=== PATIENT | male | born 1965 | race Hispanic/Latino ===

== ENCOUNTER 2021-08-03 07:27 | Emergency (ER) | payer BC ==
--- OUTSIDE RECORDS SUMMARY | 2021-08-03 07:30 | XMS REPORT | Continuity of Care Document ---
:1965 Author Organization [facility] t Address [address] Haq [address] [place] [id number] Care Team Providers Name Role Phone Cecil Flores MD Primary Care Physician Sarah MARTINEZ, Loc Pak Attending Clinician Krystian Parrish MD Attending Clinician Stefano INMAN Attending Clinician Unavailable Payers Payer Name Policy Type Policy Number Effective Date Expiration Date S ource Problems Condition Condition Condition Status Onset Resolution Last Treating Co mments Source Name Details Category Date Date Treatment Clinician Date Syringomye Syringomye Disease Active M ethodi bárbara bárbara 03-02 00:00: Hospita 00 l Chiari I Chiari I Disease Active Metho di malformati malformati 03-02 on on 00:00: Hospita 00 l Cervical Cervical Disease Active Metho di spondylosi spondylosi 03-02 s with s with 00:00: Hospita myelopathy myelopathy 00 l Chronic Chronic Disease Active [facility] right-side right-side 03-02 d d 00:00: Hospita headaches headaches 00 l Allergies, Adverse Reactions, Alerts Allergy Allergy Status Severity Reaction(s) Onset Inactive Treating Comm ents Source Name Type Date Date Clinician Morphine Propensi Active Other (See unknown M ethodi ty to Comments) [address] st adverse 00:00: Hospita reaction 00 l s to drug Social History Social Habit Start Date Stop Date Quantity Comments Source History of tobacco Cigarette Smoker [facility]ism use [facility] Cigarettes smoked 2021-05-02 2021-05-[address] current (pack per 00:00:00 00:00:00 Hospita l day) - Reported Cigarette 2021-05-02 2021-05-02 [facility] pack-years 00:00:00 00:00:00 Hospital Tobacco use and 2021-05-02 2021-05-02 Never used [facility] exposure 00:00:00 00:00:00 Hospital Alcohol intake 2021-05-02 2021-05-02 Current drinker Metho dist 00:00:00 00:00:00 of alcohol Hospital (finding) Alcohol Comment 2021-02-28 2021-02-28 social [facility] 00:00:00 00:00:00 Hospital Sex Ass[birth year] At [birth year] [facility] 00:00:00 00:00:00 Hospital Smoking Status Start Date Stop Date Source Former smoker 2021-05-02 00:00:00 2021-05-02 00:00:00 [facility] Medications Ordered Filled Start Stop Current Ordering Indication Dosage Frequency Signature Comments Components Source Medication Medication Date Date Medication? Clinician (SIG) Name Name SUMAtriptan Yes 50mg Take 50 mg Methodi (IMITREX) 05-[address] 50 MG 18:01: once as Hospita tablet 32 needed for l migraine. May repeat in 2 hours if unresolved . Do not exceed 200 mg in 24 hours. naproxen Yes 500mg Q.5D Take 500 Meth rey (NAPROSYN) 05-[address] 500 MG 18:01: mouth 2 Hospita tablet 32 (two) l times a day with meals. ubrogepant Yes Take by Meth rey (Ubrelvy) [address] 100 mg 18:01: Hospita tablet 32 l SUMAtriptan 2021- No 1{tbl} Q2H Take 1 M ethodi -naproxen 05-[address] (Treximet) 00:00: 04:59 mouth Hospi ta 85-500 mg 00 :00 every 2 l per tablet (two) hours as needed for migraine. montelukast Yes 5mg QD Chew 5 mg M ethodi (SINGULAIR) 3-[address] 5 MG 00:00: Hospita chewable 00 l tablet Vital Signs Vital Name Observation Time Observation Value Comments Source Systolic blood 2021-05-02 18:00:00 144 mm[Hg] [facility] pressure Diastolic blood 2021-05-02 18:00:00 82 mm[Hg] [facility] pressure Heart rate 2021-05-02 18:00:00 89 /min [facility] Body height 2021-05-02 18:00:00 185.4 cm [facility] Body weight 2021-05-02 18:00:00 104.781 kg [facility] BMI 2021-05-02 18:00:00 30.48 kg/m2 [facility] Respiratory rate 2021-03-30 12:10:00 18 /min [facility] Oxygen saturation in 2021-03-30 12:10:00 99 /min [facility] Arterial blood by Pulse oximetry Procedures Procedure Date / Time Performed Performing Clinician Sour e MRI THORACIC SPINE WO 2021-03-30 13:35:00 Hadley Parrish [facility] CONTRAST MRI CERVICAL SPINE WO 2021-03-30 13:15:00 Hadley Parrish [facility] CONTRAST MRI BRAIN WO CONTRAST 2021-03-30 12:43:00 Hadley Parrish [facility] XR CERVICAL SPINE 2021-03-02 15:02:10 Hadley Parrish [facility] COMPLETE W FLEX EXT XR SPINE SCOLIOSIS 2-3 2021-03-02 15:01:43 Hadley Parrish [facility] VIEWS CT HEAD EXTERNAL STUDY 2021-02-15 15:40:00 Hadley Parrish [facility] Plan of Care Planned Activity Planned Date Details Comments Source Future Scheduled Test COVID-19 VACCINE (1) [facility] [code = COVID-19 VACCINE (1)] Future Scheduled Test Hepatitis C screening [facility] (procedure) [code = 990102063] Future Scheduled Test COLONOSCOPY SCREENING [facility] [code = COLONOSCOPY SCREENING] Future Scheduled Test SHINGLES VACCINES (#1) [facility] [code = SHINGLES VACCINES (#1)] Future Scheduled Test INFLUENZA VACCINE [code [facility] = INFLUENZA VACCINE] Encounters Start End Encounter Admission Attending Care Care Encounter Source Date/Time Date/Time Type Type Clinicians Facility Department ID 2021-05-02 2021-05-02 Office Sarah, 1.2.840.1 [id number] [facility] 12:42:53 13:45:15 Visit Loc Gee50.1.[address] 3.430.2.7 Hospit a .3.278369 l .8 2021-05-02 2021-05-02 [id number] [address] [place] [address] 00:00:00 00:00:[address] 2021-05-02 2021-05-02 Travel 1.2.840.1 1.2.825.760 [id number] [facility] 00:00:00 00:00:[address] 3.430.2.7 0.2.7.3.698 Ho spita .3.066754 084.8 l .8 2021-03-30 2021-03-30 [facility], .2.840.1 [id number] 2099 [id number] Methodi 06:49:11 23:59:00 Encounter Hadley Boland [address]7962.1.[address] 3.430.2.7 Hospit a .3.894200 l .8 2021-03-30 2021-03-30 [facility], 1.2.840.1 [id number] [facility] 08:51:29 09:51:13 Visit Hadley Boland 58330.1.[address] 3.430.2.7 Hospit a .3.629832 l .8 2021-03-30 2021-03-30 [facility], .2.840.1 [id number] 2099 [id number] Methodi 06:48:50 06:48:50 Encounter Hadley XeniaVeena [address]4832.1.[address] 3.430.2.7 Hospit a .3.530014 l .8 2021-03-30 2021-03-30 [facility], .2.840.1 [id number] 2099 [id number] Method[facility] 06:48:35 06:48:35 Encounter Hadley MichaelsVeena 51015.1.[address] 3.430.2.7 Hospit a .3.999955 l .8 2021-03-30 2021-03-30 Outpatient , [facility] [id number] [address] [place] 00:00:00 00:00:00 HADLEY [address] 2021-03-30 2021-03-30 Outpatient [facility] [id number] [place] 00:00:00 00:00:00 HADLEY [address] 2021-03-30 2021-03-30 Outpatient SALOL, [facility] [id number] [place] 00:00:00 00:00:00 HADLEY [address] 2021-03-30 2021-03-30 Outpatient [facility] [id number] [place] 00:00:00 00:00:00 HADLEY [address] 2021-03-30 2021-03-30 Travel 1.2.840.1 1.2.591.367 [id number] [facility] 00:00:00 00:00:[address] 3.430.2.7 0.2.7.3.698 Ho spita .3.168963 084.8 l .8 2021-03-23 2021-03-23 Travel 1.2.840.1 1.2.726.800 [id number] [id number] [facility] 00:00:00 00:00:[address] 3.430.2.7 0.2.7.3.698 Ho spita .3.658119 084.8 l .8 2021-03-20 2021-03-20 Travel 1.2.840.1 1.2.411.303 1118 [id number] [facility] 00:00:00 00:00:[address] 3.430.2.7 0.2.7.3.698 Ho spita .3.875285 084.8 l .8 2021-03-20 2021-03-20 Orders , 1.2.840.1 [id number] [facility] 00:00:00 00:00:00 Only Hadley Krystian [address]24.1.[address] 3.430.2.7 Hospit a .3.790226 l .8 2021-03-02 2021-03-02 [facility], 1.2.840.1 [id number] Method[facility] 11:30:54 23:59:00 Encounter Hadley Krystian [address]659.1.[address] 3.430.2.7 Hospit a .3.689817 l .8 2021-03-02 2021-03-02 [facility], 1.2.840.1 [id number] [facility] 10:20:18 11:38:20 Visit Hadley Krystian 22423.1.[address] 3.430.2.7 Hospit a .3.730349 l .8 2021-03-02 2021-03-02 [facility], 1.2.840.1 [id number] 2099 [id number] Method[facility] 09:18:34 11:29:00 Encounter Hadley Krystian 91899.1.[address] 3.430.2.7 Hospit a .3.398707 l .8 2021-03-02 2021-03-02 [facility], 1.2.840.1 [id number] 2099 [id number] Method[facility] 09:15:00 09:17:00 Encounter Hadley Krystian 30895.1.[address] 3.430.2.7 Hospit a .3.780668 l .8 2021-03-02 2021-03-02 [facility] [id number] [place] 00:00:00 00:00:00 HADLEY [address] 2021-03-02 2021-03-02 Outpatient [facility] [id number] [place] 00:00:00 00:00:00 HADLEY [address] 2021-03-02 2021-03-02 Outpatient [facility] [id number] [place] 00:00:00 00:00:00 HADLEY [address] 2021-03-02 2021-03-02 Outpatient [facility] [id number] [place] 00:00:00 00:00:00 HADLEY [address] 2021-03-02 2021-03-02 Travel 1.2.840.1 1.2.678.263 [id number] [id number] [facility] 00:00:00 00:00:[address] 3.430.2.7 0.2.7.3.698 Ho spita .3.735144 084.8 l .8 2021-02-28 2021-02-28 Abstract Bella Agarwal 1.2.840.1 [id number] [facility] 00:00:00 00:00:[address] 3.430.2.7 Hospit a .3.972804 l .8 2021-02-20 2021-02-20 Orders , 1.2.840.1 [id number] [facility] 00:00:00 00:00:00 Only Hadley G. 15169.1.[address] 3.430.2.7 Hospit a .3.546502 l .8 2021-02-20 2021-02-20 Travel 1.2.840.1 1.2.853.704 [id number] [id number] [facility] 00:00:00 00:00:[address] 3.430.2.7 0.2.7.3.698 Ho spita .3.147244 084.8 l .8 Results Test Description Test Time Test Comments Results Result [facility] e Comments MRI Thoracic 2021-03-03 EXAMINATION: MRI Method ist Spine Wo 9 THORACIC SPINE WO Hospita l Contrast 14:02:47 CONTRAST CLINICAL HISTORY: G95.0 Syringomyelia and syringobulbia, G93.5 Compression of brain, Syringomyelia COMPARISON: None TECHNIQUE: Multiplanar multisequence noncontrast enhanced examination was performed of the thoracic spine. FINDINGS: 12 rib bearing thoracic vertebrae visualized. The alignment is within normal limits. No subluxation. No abnormal marrow edema. No suspicious osseous lesions. No degenerative marrow signal abnormality. Vertebral body and intervertebral disc heights are preserved. There is mild right lateral recess narrowing at T10-T11 secondary to anteriorly projecting facet osteophyte, image 42 of series 19. No significant posterior disc disease, spinal canal, subarticular zone or neural foraminal stenosis throughout the thoracic spine. No abnormal spinal cord signal. Conus medullaris terminates appropriately at the L1 level. Limited visualization of the chest demonstrates no pleural effusion or suspicious lung mass. No hydronephrosis. IMPRESSION: No thoracic spinal canal narrowing or syrinx formation. [id number] Interface, Radiology Results - 03/30/2021 9:05 AM CDT EXAMINATION: MRI THORACIC SPINE WO CONTRASTCLINICAL HISTORY: G95.0 Syringomyelia and syringobulbia, G93.5 Compression of brain, SyringomyeliaCOMPARIS ON: NoneTECHNIQUE: Multiplanar multisequence noncontrast enhanced examination was performed of the thoracic spine.FINDINGS:12 rib bearing thoracic vertebrae visualized. The alignment is within normal limits. No subluxation. No abnormal marrow edema. No suspicious osseous lesions. No degenerative marrow signal abnormality. Vertebral body and intervertebral disc heights are preserved.There is mild right lateral recess narrowing at T10-T11 secondary to anteriorly projecting facet osteophyte, image 42 of series 19. No significant posterior disc disease, spinal canal, subarticular zone or neural foraminal stenosis throughout the thoracic spine. No abnormal spinal cord signal. Conus medullaris terminates appropriately at the L1 level.Limited visualization of the chest demonstrates no pleural effusion or suspicious lung mass. No hydronephrosis.IMPRES JOSE: No thoracic spinal canal narrowing or syrinx formation.[id number] 1 MRI Cervical 2021-03-03 EXAMINATION: MRI Method ist Spine Wo 9 CERVICAL SPINE WO Hospita l Contrast 13:34:01 CONTRAST CLINICAL HISTORY: G95.0 Syringomyelia and syringobulbia, G93.5 Compression of brain, Syringomyelia COMPARISON: C-spine radiograph 03/02/2021. TECHNIQUE: Multiplanar multisequence noncontrast enhanced examination was performed of the cervical spine. FINDINGS: There is inferior descent of the cerebellar tonsils into the foramen magnum as detailed on separate MRI brain performed same day. No serious formation or abnormal cord signal identified. The alignment of the cervical spine is within normal limits. No subluxation. No suspicious osseous lesion. No degenerative marrow changes. Vertebral body and intervertebral disc heights are preserved. There is borderline background developmental canal narrowing measuring 11 mm in AP dimension secondary to short pedicles. No prevertebral edema or neck mass identified. No cervical lymphadenopathy identified. Major vascular flow voids are present, demonstrating patency. Axial images through the disc spaces demonstrate the following: C1-C2: No significant spinal canal stenosis. C2-C3: No significant posterior disc disease, spinal canal, subarticular zone, or neural foraminal stenosis. C3-C4: Trace posterior disc bulge which indents the ventral thecal sac, however no spinal canal, subarticular zone, or neural foraminal stenosis. C4-C5: Trace circumferential disc bulge which indents ventral thecal sac and results in mild bilateral neural foraminal stenosis when combined with endplate osteophytes. Spinal canal is patent. C5-C6: Minimal circumferential disc bulge which indents the ventral thecal sac and results in mild spinal canal, moderate to marked left and mild right neural foraminal stenosis when combined with background congenital narrowing and facet arthrosis, image 26 of series 9. C6-C7: No significant posterior disc disease, spinal canal, subarticular zone, or neural foraminal stenosis. C7-T1: No significant posterior disc disease, spinal canal, subarticular zone, or neural foraminal stenosis. IMPRESSION: 1.Moderate to marked left neural foraminal stenosis at C5-C6 secondary to bulging disc material and facet arthrosis. 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 [id number] Interface, Radiology Results Incoming - 03/30/2021 8:37 AM CDT EXAMINATION: MRI CERVICAL SPINE WO CONTRASTCLINICAL HISTORY: G95.0 Syringomyelia and syringobulbia, G93.5 Compression of brain, SyringomyeliaCOMPARIS ON: C-spine radiograph 03/02/2021.TECHNIQUE: Multiplanar multisequence noncontrast enhanced examination was performed of the cervical spine.FINDINGS:There is inferior descent of the cerebellar tonsils into the foramen magnum as detailed on separate MRI brain performed same day. No serious formation or abnormal cord signal identified. The alignment of the cervical spine is within normal limits. No subluxation. No suspicious osseous lesion. No degenerative marrow changes. Vertebral body and intervertebral disc heights are preserved. There is borderline background developmental canal narrowing measuring 11 mm in AP dimension secondary to short pedicles.No prevertebral edema or neck mass identified. No cervical lymphadenopathy identified. Major vascular flow voids are present, demonstrating patency.Axial images through the disc spaces demonstrate the following:C1-C2: No significant spinal canal stenosis.C2-C3: No significant posterior disc disease, spinal canal, subarticular zone, or neural foraminal stenosis.C3-C4: Trace posterior disc bulge which indents the ventral thecal sac, however no spinal canal, subarticular zone, or neural foraminal stenosis.C4-C5: Trace circumferential disc bulge which indents ventral thecal sac and results in mild bilateral neural foraminal stenosis when combined with endplate osteophytes. Spinal canal is patent.C5-C6: Minimal circumferential disc bulge which indents the ventral thecal sac and results in mild spinal canal, moderate to marked left and mild right neural foraminal stenosis when combined with background congenital narrowing and facet arthrosis, image 26 of series 9.C6-C7: No significant posterior disc disease, spinal canal, subarticular zone, or neural foraminal stenosis.C7-T1: No significant posterior disc disease, spinal canal, subarticular zone, or neural foraminal stenosis.IMPRESSION:1 .Moderate to marked left neural foraminal stenosis at C5-C6 secondary to bulging disc material and facet arthrosis. 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 FINDINGS: There is approximately 6 mm inferior descent of the cerebellar tonsils into the foramen magnum, image 12 series 15, with mild crowding. No mass effect/flattening of the cervical medullary junction identified, image 26 of series 11. No ventriculomegaly. A few scattered T2/FLAIR hyperintensities are noted throughout the bifrontal subcortical white matter, nonspecific but possibly related to sequela of chronic migraines. No restricted diffusion identified to indicate recent infarct. No intra or extra-axial fluid collections identified. No mass, mass effect, or midline shift is seen. The basal ganglia, thalami, midbrain, chavez and cervicomedullary junction are unremarkable. The ventricles and sulci are unremarkable for patient's age. Sella turcica is normal in appearance. The basal cisterns are patent. The calvarium appears intact. The major intracranial vascular flow voids are present. The orbital contents are symmetric and unremarkable. The paranasal sinuses are unremarkable. The mastoid air cells and middle ear cavities are clear. 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 No acute intracranial abnormality identified. [id number] Interface, Radiology Results Incoming - 03/30/2021 8:30 AM CDT EXAMINATION: MRI BRAIN WO CONTRASTCLINICAL HISTORY: G95.0 Syringomyelia and syringobulbia, G93.5 Compression of brain, Chiari I malformationCOMPARISO N: NoneTECHNIQUE: Multiplanar and multisequence MRI imaging of the brain was obtained without contrast.FINDINGS:The re is approximately 6 mm inferior descent of the cerebellar tonsils into the foramen magnum, image 12 series 15, with mild crowding. No mass effect/flattening of the cervical medullary junction identified, image 26 of series 11. No ventriculomegaly.A few scattered T2/FLAIR hyperintensities are noted throughout the bifrontal subcortical white matter, nonspecific but possibly related to sequela of chronic migraines. No restricted diffusion identified to indicate recent infarct. No intra or extra-axial fluid collections identified. No mass, mass effect, or midline shift is seen.The basal ganglia, thalami, midbrain, chavez and cervicomedullary junction are unremarkable. The ventricles and sulci are unremarkable for patient's age. Sella turcica is normal in appearance. The basal cisterns are patent. The calvarium appears intact. The major intracranial vascular flow voids are present. The orbital contents are symmetric and unremarkable. The paranasal sinuses are unremarkable. The mastoid air cells and middle ear cavities are clear.IMPRESSION:Cere bellar tonsillar ectopia measuring up to 6 mm, without evidence of significant cervicomedullary mass effect or ventriculomegaly. No acute intracranial abnormality identified.[id number] CT Head External This exam was not M ethodist Study 1 acquired at a Hospital 16:37:05 Confuc[facility]ism facility and has not been interpreted by a Confucianism Provider. The exam was imported into our imaging system. XR Cervical EXAMINATION: XR Method[facility] t Spine Complete w 1 CERVICAL SPINE Hosp ital flex/ext 16:24:28 COMPLETE W FLEX EXT CLINICAL HISTORY: M54.12 Radiculopathy cervical region, radiculopathy COMPARISON: None IMPRESSION: 8 views of the cervical spine were obtained. Flexion-extension imaging shows good range of motion with 1 to 2 mm interbody movement at C4-5. Prevertebral soft tissues are within normal limits. Multilevel uncovertebral arthrosis and facet disease is noted on the oblique images. Endplates are intact with no fracture. There is straightening of the cervical lordosis on neutral positioning. [id number] Interface, Radiology Results 03/02/2021 11:27 AM CDT EXAMINATION: XR CERVICAL SPINE COMPLETE W FLEX EXTCLINICAL HISTORY: M54.12 Radiculopathy cervical region, radiculopathyCOMPARIS ON: NoneIMPRESSION:8 views of the cervical spine were obtained. Flexion-extension imaging shows good range of motion with 1 to 2 mm interbody movement at C4-5. Prevertebral soft tissues are within normal limits.Multilevel uncovertebral arthrosis and facet disease is noted on the oblique images. Endplates are intact with no fracture. There is straightening of the cervical lordosis on neutral positioning.[facility]-[id number] XR Spine EXAMINATION: XR Methodis t Scoliosos 2-3 1 SPINE SCOLIOSIS 2-3 Ho spital Views 15:53:21 VIEWS CLINICAL HISTORY: M54.12 Radiculopathy cervical region, radiculopathy COMPARISON: None. Frontal and lateral views of entire spine was performed per scoliosis protocol. IMPRESSION: There is broad-based 6 degree leftward curvature at T5. There is 2.8 cm leftward coronal balance. There is 0 sagittal balance. Heart size is normal. Lungs are grossly clear. Bowel gas pattern is nonobstructive. [id number] Interface, Radiology Results Incoming - 03/02/2021 10:56 AM CDT EXAMINATION: XR SPINE SCOLIOSIS 2-3 VIEWSCLINICAL HISTORY: M54.12 Radiculopathy cervical region, radiculopathyCOMPARIS ON: None.Frontal and lateral views of entire spine was performed per scoliosis protocol.IMPRESSION:T here is broad-based 6 degree leftward curvature at T5. There is 2.8 cm leftward coronal balance. There is 0 sagittal balance.Heart size is normal. Lungs are grossly clear. Bowel gas pattern is nonobstructive.[facility]-2 [id number]
--- NOTE | 2021-08-03 08:15 | RAD REPORT ---
EXAM DESCRIPTION: CTStone Protocol - 08/03/2021 8:00 am CLINICAL HISTORY: . FLANK PAIN COMPARISON: <Comparisons> TECHNIQUE: Biphasic CT imaging of the abdomen and pelvis was performed with 100 ml non-ionic IV cont rast. All CT scans are performed using dose optimization technique as appropriate and may include automated exposure control or mA/KV adjustment according to patient size. FINDINGS: Lower chest: No acute abnormality. Liver: No acute abnormality or suspicious lesions. Biliary: No biliary ductal dilatation. Stomach: No significant focal abnormality. Duodenum: No significant focal abnormality. Pancreas: No significant abnormality. Spleen: No significant abnormality. Adrenal: No suspicious lesions. Kidney/ureter: Mild left hydronephrosis secondary to a 3 millimeter stone left proximal ureter. No re nal calculi. Retroperitoneum: No retroperitoneal adenopathy. Vascular: No aneurysm. Bowel: No significant focal abnormality. Peritoneum: No ascites or free air. Bladder: Grossly unremarkable. Reproductive: No adnexal masses. Bones: No acute fracture. Other: n/a IMPRESSION: Mild left-sided hydronephrosis secondary to a 2 millimeters stone in the left proximal u reter. Additional left renal calculi noted.
[2021-08-03 08:31] LABS: Urine Blood 3+ (Negative); Urine Glucose Negative (Negative); Urine Protein 2+ (Negative); Urine Specific Gravity >=1.030 (1.005-1.030); Urine pH 5.5 (5.0-7.0)
[2021-08-03 08:46] LABS: Basophils % 0.2 % (0-1.3); Hematocrit 45.1 % (39.6-49.0); Lymphocytes % 8.7 % (15.3-44.8); MPV 8.7 fL (7.6-11.3); RBC Red Blood Cell Count 5.07 M/uL (4.33-5.43)
[2021-08-03 08:59] LABS: Potassium 3.9 mmol/L (3.5-5.1)
[2021-08-03] MEDS ORDERED: KETOROLAC 30 MG/ML INJ ONE (09:00)
[2021-08-03] MEDS ORDERED: MAGNESIUM SULFATE 1 gm IVPB 1 GM/100 ML BAG IV ONE (09:00)
[2021-08-03] MEDS ORDERED: NA CHLORIDE 0.9% 1,000 ML ONE (09:00)
[2021-08-03] MEDS ORDERED: TAMSULOSIN 0.4 MG SR CAP ONE (09:00)
[2021-08-03 09:04] LABS: Urine RBC TNTC /HPF (NONE SEEN)
[2021-08-03 09:06] LABS: Urine Bacteria <20 /HPF (NONE SEEN); Urine Mucus 2+ /HPF (NONE SEEN)
[2021-08-03] MEDS ORDERED: FENTANYL CITR 100 MCG/2 ML ONE (09:12)
[2021-08-03] MEDS ORDERED: ONDANSETRON 4 MG/2 ML VIAL ONE (09:12)
--- NOTE | 2021-08-03 09:34 | EDPHYS ---
Physician Documentation [facility] Name: Dean Underwood Age: 55 yrs Sex: Male : 1965 Arrival Date: 08/03/2021 Time: 07:33 Bed 15 Private MD: ED Physician Han Li HPI: 08/03 09:30 This 55 yrs old Male presents to ER via Ambulatory with complaints of Low Back kb Pain. 09:30 The patient complains of pain in the left flank. The pain radiates to the left lower kb quadrant. Onset: The symptoms/episode began/occurred this morning, at 06:30. Modifying factors: The symptoms are alleviated by nothing. the symptoms are aggravated by nothing. Associated signs and symptoms: The patient has no apparent associated signs or symptoms. Severity of pain: At its worst the pain was moderate in the emergency department the pain is unchanged. The patient has not experienced similar symptoms in the past. The patient has not recently seen a physician. Pt reports sudden onset of left flank pain that is morning that radiates to LLQ. Denies any other symptoms. Historical: - Allergies: 07:49 Morphine; jl7 - Home Meds: 07:49 None [Active]; jl7 - PMHx: 07:49 Migraines; jl7 - PSHx: 07:49 Appendectomy; jl7 - Immunization history:: Adult Immunizations unknown, Client reports having NOT received the Covid vaccine. - Social history:: Smoking status: Patient/guardian denies using tobacco, Stopped _ months ago 9. ROS: 09:32 Constitutional: Negative for fever, chills, and weight loss. kb 09:32 Back: Positive for flank pain, on the left. 09:32 All other systems are negative. Exam: 09:32 Constitutional: This is a well developed, well nourished patient who is awake, alert, kb and in no acute distress. Head/Face: Normocephalic, atraumatic. ENT: Moist Mucous membranes Cardiovascular: Regular rate and rhythm with a normal S1 and S2. No gallops, murmurs, or rubs. No pulse deficits. Respiratory: Respirations even and unlabored. No increased work of breathing, no retractions or nasal flaring. Abdomen/GI: Soft, non-tender. No distention Skin: Warm, dry with normal turgor. Normal color. MS/ Extremity: Pulses equal, no cyanosis. Neurovascular intact. Full, normal range of motion. Neuro: Awake and alert, GCS 15, oriented to person, place, time, and situation. Moves all extremities. Normal gait. Psych: Awake, alert, with orientation to person, place and time. Behavior, mood, and affect are within normal limits. 09:32 Back: pain, that is moderate, CVA tenderness, that is mild, is noted on the left. Vital Signs: 07:48 BP 137 / 80; Pulse 67; Resp 17; Temp 96.6; Pulse Ox 100% ; Weight 104.33 kg; Height 6 jl7 ft. 1 in. (185.42 cm); Pain 8/10; 10:13 BP 131 / 77; Pulse 75; Resp 16; Pulse Ox 99% on R/A; Pain 2/10; ss 07:48 Body Mass Index 30.34 (104.33 kg, 185.42 cm) jl7 MDM: 07:49 Patient medically screened. kb 09:32 Data reviewed: vital signs, nurses notes. Data interpreted: Pulse oximetry: on room air kb is 100 %. Interpretation: normal. 09:32 Counseling: I had a detailed discussion with the patient and/or guardian regarding: the kb historical points, exam findings, and any diagnostic results supporting the discharge/admit diagnosis, lab results, radiology results, the need for outpatient follow up, a urologist, to return to the emergency department if symptoms worsen or persist or if there are any questions or concerns that arise at home. 08/03 08:20 Order name: CBC with Diff; Complete Time: 09:53 kb 08/03 08:20 Order name: Basic Metabolic Panel; Complete Time: 09:14 kb 08/03 07:50 Order name: CT Stone Protocol; Complete Time: 08:19 kb 08/03 08:20 Order name: Urine Microscopic Only; Complete Time: 09:14 kb 08/03 08:31 Order name: Urine Dipstick-Ancillary; Complete Time: 08:35 EDMS 08/03 08:48 Order name: Manual Differential; Complete Time: 09:53 EDMS 08/03 07:50 Order name: Urine Dipstick-Ancillary (obtain specimen); Complete Time: 08:32 kb 08/03 08:20 Order name: IV Start; Complete Time: 08:32 kb Administered Medications: 08:42 Drug: Ketorolac 15 mg Route: IVP; Site: right antecubital; ss 09:51 Follow up: Response: No adverse reaction; Pain is decreased ss 08:46 Drug: NS 0.9% 1000 ml Route: IV; Rate: 1000 ml; Site: right antecubital; ss 10:13 Follow up: IV Status: Completed infusion; IV Intake: 1000ml ss 08:46 Drug: Flomax (tamsulosin) 0.4 mg Route: PO; ss 09:51 Follow up: Response: No adverse reaction ss 08:46 Drug: Magnesium Sulfate 1 grams Route: IVPB; Infused Over: 30 mins; Site: right ss antecubital; 09:30 Follow up: IV Status: Completed infusion; IV Intake: 100ml ss 08:52 Drug: Zofran (Ondansetron) 4 mg Route: IVP; Site: right antecubital; ss 09:51 Follow up: Response: No adverse reaction; Nausea is decreased ss 08:54 Drug: fentaNYL (PF) 50 mcg Route: IVP; Site: right antecubital; ss 10:13 Follow up: Response: No adverse reaction; Marked relief of symptoms; Pain is decreased ss 10:01 Drug: Rocephin (cefTRIAXone) 1 grams Route: IV; Rate: calculated rate; Site: right [facility] antecubital; 10:01 Drug: [place] (HYDROcodone-acetaminophen) 10 mg-325 mg 1 tabs Route: PO; kh1 10:13 Follow up: Response: No adverse reaction; Medication administered at discharge. Disposition: 08/04 08:17 Co-signature as Attending Physician, Han Li MD I agree with the assessment and luci plan of care. Disposition Summary: 08/03/21 09:34 Discharge Ordered Location: Home kb Condition: Stable kb Diagnosis - Calculus of ureter kb Followup: kb - With: Emergency Department - When: As needed - Reason: Worsening of condition Followup: kb - With: Private Physician - When: 2 - 3 days - Reason: Recheck today's complaints, Continuance of care, Re-evaluation by your physician Followup: kb - With: Omid Syed MD - When: 1 - 2 days - Reason: Recheck today's complaints Discharge Instructions: - Discharge Summary Sheet kb - Kidney Stones, [id number] kb - Dietary Guidelines to Help Prevent Kidney Stones kb Forms: - Medication Reconciliation Form kb - Thank You Letter kb - Antibiotic Education kb - Prescription Opioid Use kb Prescriptions: - Flomax 0.4 mg Oral capsule - take 1 capsule by ORAL route once daily . 1/2 hour following the same meal each kb day; 10 capsule; Refills: 0, Product Selection Permitted - Zofran 4 mg Oral Tablet - take 1 tablet by ORAL route every 6 hours As needed; 20 tablet; Refills: 0, kb Product Selection Permitted - Cipro 500 mg Oral Tablet - take 1 tablet by ORAL route every 12 hours for 10 days; 20 tablet; Refills: 0, kb Product Selection Permitted - Diclofenac Sodium 75 mg Oral tablet,delayed release (DR/EC) - take 1 tablet by ORAL route 2 times per day As needed; 30 tablet; Refills: 0, kb Product Selection Permitted Signatures: Dispatcher [employer] Deidra Valderrama, MANAGER PERFORMANCE-C THOMAS-Han Mullins MD MD cha Smirch, Shelby RN RN ss Pepper Rutherford RN RN jl7 Delmi Gorman [facility]
--- NOTE | 2021-08-03 09:34 | ER ---
Nurse's Notes [facility] Name: Dean Underwood Age: 55 yrs Sex: Male : 1965 Arrival Date: 08/03/2021 Time: 07:33 Bed 15 Private MD: Diagnosis: Calculus of ureter Presentation: 08/03 07:48 Chief complaint: Patient states: Sudden left flank pain radiates to left lower quadrant jl7 x 1.5 hours. Coronavirus screen: Vaccine status: Patient reports being unvaccinated. Ebola Screen: No symptoms or risks identified at this time. Initial Sepsis Screen: Does the patient meet any 2 criteria? No. Patient's initial sepsis screen is negative. Does the patient have a suspected source of infection? No. Patient's initial sepsis screen is negative. Risk Assessment: Do you want to hurt yourself or someone else? Patient reports no desire to harm self or others. Onset of symptoms was August 03, 2021 at 06:15. Care prior to arrival: None. 07:48 Method Of Arrival: Ambulatory jl7 07:48 Acuity: HYUN 3 jl7 Historical: - Allergies: 07:49 Morphine; jl7 - Home Meds: 07:49 None [Active]; jl7 - PMHx: 07:49 Migraines; jl7 - PSHx: 07:49 Appendectomy; jl7 - Immunization history:: Adult Immunizations unknown, Client reports having NOT received the Covid vaccine. - Social history:: Smoking status: Patient/guardian denies using tobacco, Stopped _ months ago 9. Screenin:23 Abuse screen: Denies threats or abuse. Denies injuries from another. Nutritional ss screening: No deficits noted. Tuberculosis screening: Never had TB. Fall Risk None identified. Assessment: 08:23 General: Appears distressed, uncomfortable, Behavior is calm, cooperative, Denies ss fever, feeling ill, fatigue, chills. Pain: Complains of pain in left flank Pain currently is 10 out of 10 on a pain scale. Quality of pain is described as sharp, Is continuous. Neuro: Level of Consciousness is awake, alert, obeys commands, Oriented to person, place, time, situation. Cardiovascular: Capillary refill < 3 seconds is brisk in bilateral fingers Patient's skin is warm and dry. Respiratory: Airway is patent Respiratory effort is even, unlabored, Respiratory pattern is regular, symmetrical. GI: Patient currently denies diarrhea, nausea, vomiting. Derm: Skin is intact, is healthy with good turgor, Skin is dry, Skin is pink, warm \T\ dry. normal. Musculoskeletal: Circulation, motion, and sensation intact. Range of motion: intact in all extremities, Swelling absent. 10:13 Reassessment: Patient appears in no apparent distress at this time. Patient and/or ss family updated on plan of care and expected duration. Pain level reassessed. Patient is alert, oriented x 3, equal unlabored respirations, skin warm/dry/pink. Patient states feeling better. Patient states symptoms have improved. Vital Signs: 07:48 BP 137 / 80; Pulse 67; Resp 17; Temp 96.6; Pulse Ox 100% ; Weight 104.33 kg; Height 6 jl7 ft. 1 in. (185.42 cm); Pain 8/10; 10:13 BP 131 / 77; Pulse 75; Resp 16; Pulse Ox 99% on R/A; Pain 2/10; ss 07:48 Body Mass Index 30.34 (104.33 kg, 185.42 cm) jl7 ED Course: 07:33 Patient arrived in ED. mr 07:49 Deidra Aguirre FNP-C is [facility]. kb 07:49 Han Li MD is Attending Physician. kb 07:49 Triage completed. jl7 07:49 Arm band placed on right wrist. jl7 07:51 Patient placed in waiting room, Patient notified of wait time. jl7 08:00 CT Stone Protocol In Process Unspecified. EDMS 08:23 Patient has correct armband on for positive identification. Bed in low position. Call ss light in reach. 08:35 Inserted saline lock: 20 gauge in right antecubital area, using aseptic technique. ds4 Blood collected. 09:23 Delmi Gorman is Primary Nurse. kh1 09:40 Omid Syed MD is Referral Physician. kb Administered Medications: 08:42 Drug: Ketorolac 15 mg Route: IVP; Site: right antecubital; ss 09:51 Follow up: Response: No adverse reaction; Pain is decreased ss 08:46 Drug: NS 0.9% 1000 ml Route: IV; Rate: 1000 ml; Site: right antecubital; ss 10:13 Follow up: IV Status: Completed infusion; IV Intake: 1000ml ss 08:46 Drug: Flomax (tamsulosin) 0.4 mg Route: PO; ss 09:51 Follow up: Response: No adverse reaction ss 08:46 Drug: Magnesium Sulfate 1 grams Route: IVPB; Infused Over: 30 mins; Site: right antecubital; 09:30 Follow up: IV Status: Completed infusion; IV Intake: 100ml ss 08:52 Drug: Zofran (Ondansetron) 4 mg Route: IVP; Site: right antecubital; ss 09:51 Follow up: Response: No adverse reaction; Nausea is decreased ss 08:54 Drug: fentaNYL (PF) 50 mcg Route: IVP; Site: right antecubital; ss 10:13 Follow up: Response: No adverse reaction; Marked relief of symptoms; Pain is decreased ss 10:01 Drug: Rocephin (cefTRIAXone) 1 grams Route: IV; Rate: calculated rate; Site: right [facility] antecubital; 10:01 Drug: [place] (HYDROcodone-acetaminophen) 10 mg-325 mg 1 tabs Route: PO; kh1 10:13 Follow up: Response: No adverse reaction; Medication administered at discharge. ss Intake: 09:30 IV: 100ml; Total: 100ml. ss 10:13 IV: 1000ml; Total: 1100ml. ss Outcome: 09:34 Discharge ordered by . kb 10:14 Patient left the ED. ss Signatures: Dispatcher [employer] EDMS Deidra Aguirre, TIFFANIE GUZMAN-Koffi MishraaEmili Aisha Weeks RN RN ss Arturo Oropeza ds4 Pepper Rutherford RN RN jl7 Delmi Gorman [facility]
[2021-08-03 09:43] LABS: Anisocytosis SLIGHT; Blood Morphology Comment NOTED (NOT SEEN); Platelet Estimate ADEQ
[2021-08-03 10:19] VITALS: TEMP 96.6
[2021-08-03 10:20] VITALS: BP 131/77; O2SAT 99
[2021-08-03] MEDS ORDERED: HYDROCODONE/APAP 10/325 TAB ONE (10:21)
[2021-08-03] MEDS ORDERED: CEFTRIAXONE/SWI 1gm 1 GM/10 ML SYR ONE (10:21)
== END 2021-08-03 10:14 | disposition home or self-care (01) ==
LOC: ER 07:27
DX: N20.1 Calculus of ureter (principal); Z88.5 Allergy status to narcotic agent
CPT/HCPCS: 96365; 96361; 85025; 80048; 36415; 76377; 74176; 96375; 99284; J3010; J3475; J0696; J7030; J2405; 81003; 81015

== ENCOUNTER 2022-03-28 08:19 | Day surgery (SDC) | payer BC ==
--- NOTE | 2022-03-28 08:22 | RAD REPORT ---
EXAM DESCRIPTION: RAD - Chest Pa And Lat (2 Views) - 03/28/2022 8:15 am CLINICAL HISTORY: Pre op pending cyst removal COMPARISON: Abdomen 1 View (KUB) dated 10/05/2021; CHEST PA AND LAT 2 VIEW dated 01/24/2008 FINDINGS: Lines: None. Lungs: No evidence of edema or pneumonia. Pleural: No significant pleural effusions or pneumothorax. Cardiac: The heart size is within normal limits. Bones: No acute fractures. Other: IMPRESSION: No acute cardiopulmonary disease.
[2022-03-28 08:28] LABS: Absolute Lymphocytes (CBC) 1.2 K/uL (0.7-4.9); Hematocrit 43.2 % (39.6-49.0); Lymphocytes % 21.9 % (15.3-44.8); MPV 9.1 fL (7.6-11.3); RBC Red Blood Cell Count 4.74 M/uL (4.33-5.43)
[2022-03-28 08:31] LABS: Potassium 4.1 mmol/L (3.5-5.1)
[2022-03-28] MEDS ORDERED: CEFAZOLIN SODIUM 1 GM/VIAL ONE (08:42)
[2022-03-28] MEDS ORDERED: Ringers Lactate 1,000 ML IV ONE (08:42)
[2022-03-28] MEDS ORDERED: propofoL 200 MG/20 ML VIAL IV ONE ×2 (10:41→11:49)
[2022-03-28] MEDS ORDERED: FENTANYL CITR 100 MCG/2 ML ONE (10:42)
[2022-03-28] MEDS ORDERED: ONDANSETRON 4 MG/2 ML VIAL ONE ×2 (10:42→12:03)
[2022-03-28] MEDS ORDERED: LIDOCAINE 2% MPF 5 ML VIAL ONE (10:42)
[2022-03-28] MEDS ORDERED: MIDAZOLAM HCL 2 MG/2 ML INJ ONE (10:44)
[2022-03-28] MEDS ORDERED: BUPIVACAINE 0.5% PF 10 ML VIAL ONE (11:03)
[2022-03-28] MEDS ORDERED: BUPIVACAINE 0.5% PF 10 ML VIAL SQ ONE (11:55)
[2022-03-28] MEDS ORDERED: MORPHINE 10 MG/ML VIAL ONE (11:56)
[2022-03-28] MEDS ORDERED: MEPERIDINE HCL 25 MG/ML SYR ONE (11:57)
[2022-03-28] MEDS ORDERED: dexAMETHasone 10 MG/ML VIAL ONE (12:00)
[2022-03-28] MEDS ORDERED: HYDROCODONE/APAP 7.5/325 MG TAB PO PRN (12:14)
[2022-03-28] MEDS ORDERED: KETOROLAC 30 MG/ML INJ ONE (12:44)
--- NOTE | 2022-03-28 12:58 | EKG ---
Test Date: 2022-03-28 Test Time: 07:02:08 Stone Layout Marker: LIDA MEASUREMENT RESULTS: Intervals: Rate: 85 PA: 174 QRSD: 94 QT: 360 QTc: 428 [place]: P: 45 PA: 174 QRS: 37 T: -3 INTERPRETIVE STATEMENTS: Normal sinus rhythm Normal ECG No previous ECG available for comparison Electronically Signed On 03-28-22 12:57:29 CDT by Eloy Diaz
[2022-03-28 13:16] VITALS: BP 107/67; TEMP 96.8; O2SAT 99
[2022-03-28] MEDS ORDERED: HYDROCODONE/APAP 7.5/325 MG TAB ONE (13:30)
--- NOTE | 2022-03-28 14:31 | P.OP ---
Date of Service: 03/28/22 Preop diagnosis: Inflamed cyst chest wall Postop diagnosis: Same Procedure performed: Wide excision chest wall mass 6 x 4 cm with layered closure Surgeon: Robbin Pereira MD Industrial Relations Worker: Jose G CORREIA Estimated blood loss: Minimal Specimen: Chest wall mass Findings: Inflamed sebaceous cyst Anesthesia: General Complications: None Drains: Quarter-inch [place] drain Fluids and blood products: Nonapplicable Disposition: Recovery Operative note: Patient brought to the OR and placed in the supine position. General anesthesia begun and patient prepped and draped in usual sterile fashion. Marcaine 0.5% infiltrated in a field block fashion. 15 blade used to make a 6 x 4 cm incision to include the entire cyst and its content through the deep subcutaneous tissue. Entire cyst excised and sent to pathology as specimen. Wound irrigated bleeding controlled cautery. Flaps created. 0 chromic and 2-0 chromic used to reapproximate the subcutaneous tissue after quarter inch Yg drain was placed and secured with 3-0 nylon. 2-0 nylon was used to close the skin loosely. Cultures were done of the cyst contents on the back table. Sterile dressing applied. Patient awakened and taken to recovery in good general condition. CC: Dr. Flores's office
== END 2022-03-28 13:50 | disposition home or self-care (01) ==
LOC: OR 08:19
PROVIDERS: ATTEND Surgery
PROC: 0JB60ZZ Excision of Chest Subcutaneous Tissue and Fascia, Open Approach (ICD-10-PCS; principal; 2022-03-28 10:30)
DX: L72.0 Epidermal cyst (principal); Z20.822 Contact with and (suspected) exposure to COVID-19
CPT/HCPCS: 93005; 87070; 85025; 80048; 36415; 87205; 88304; 87077; 87186; 71046; 11406; U0003; J2704 ×2; J2250; J3010; J1100; J2175; J7120; J2405 ×2; J0690

== ENCOUNTER → 2024-02-09 | Emergency (ER) | payer BC ==
[~2024-02-09] MED LIST: DIAZEPAM 5 MG TABLET ONE; GABAPENTIN 300 MG CAP ONE; HYDROCODONE/APAP 5/325 MG TAB ONE
--- NOTE | 2024-02-09 22:07 | RAD REPORT ---
EXAM DESCRIPTION: USExtremity Venous Uni Ltd02/09/2024 9:40 pm CLINICAL HISTORY: left leg pain COMPARISON: January 17, 2024 FINDINGS: Left common femoral, superficial femoral, greater saphenous, popliteal and posterior tibi al veins are compressible and demonstrate augmentation. Doppler demonstrates good flow. Grayscale, color and spectral analysis performed on all vessels IMPRESSION: No evidence of deep venous thrombosis involving the left lower extremity.
--- NOTE | 2024-02-09 22:36 | RAD REPORT ---
EXAM DESCRIPTION: RAD - Knee Left 3 View - 02/09/2024 10:26 pm CLINICAL HISTORY: Left knee pain FINDINGS: No fracture or dislocation is seen. No significant bone or joint abnormality noted
--- NOTE | 2024-02-09 22:37 | RAD REPORT ---
EXAM DESCRIPTION: Mitesh Morales Left02/09/2024 10:26 pm CLINICAL HISTORY: Left leg pain FINDINGS: No fracture is seen No bony abnormality noted
--- NOTE | 2024-02-09 22:39 | RAD REPORT ---
EXAM DESCRIPTION: RAD - Hip Left 2 View - 02/09/2024 10:26 pm CLINICAL HISTORY: Left hip pain FINDINGS: No fracture or dislocation is seen. Mild osteoarthritis left hip mainly consisting of subchondral sclerosis
--- NOTE | 2024-02-09 23:30 | EDPHYS ---
Physician Documentation [facility] Name: Dean Brownlee Age: 58 yrs Sex: Male : 1965 Arrival Date: 02/09/2024 Time: 20:15 Bed DX3 Private MD: ED Physician Naveed Oseguera HPI: 02/08 23:29 This 58 yrs old Male presents to ER via Ambulatory with complaints of Leg Pain.ms3 23:29 58-year-old male with past medical history of migraines presents to the emergency mt3 department for left leg pain. Patient states he had ultrasound performed 1 week ago that was negative. Patient states over the last 4 days the pain has become worse. Patient states the pain is located in his calf and is sharp and rated 10/10. Patient states he has seen his primary care physician and x-rays are supposed to be performed this coming week.. Historical: - Allergies: 21:05 Morphine; km8 - Home Meds: 21:05 None [Active]; km8 - PMHx: 21:05 Migraines; km8 - PSHx: 21:05 Appendectomy; km8 - Immunization history:: Client reports having NOT received the Covid vaccine. Flu vaccine is not up to date. - Social history:: Smoking status: Patient denies any tobacco usage or history of. Patient uses alcohol, occasionally. Patient/guardian denies using street drugs. ROS: 23:29 Constitutional: Negative for fever, and chills. Neck: Negative for injury, pain, and ms3 swelling, Cardiovascular: Negative for chest pain, and palpitations. Respiratory: Negative for shortness of breath, cough, wheezing, and pleuritic chest pain, Abdomen/GI: Negative for abdominal pain, nausea, vomiting, diarrhea, and constipation, 23:29 MS/extremity: Positive for Left leg pain, Exam: 23:29 Constitutional: This is a well developed, well nourished patient who is awake, alert, ms3 and in no acute distress. Head/Face: Normocephalic, atraumatic. Neck: Trachea midline, no cervical lymphadenopathy. Supple, full range of motion without nuchal rigidity, or vertebral point tenderness. No Meningismus. Chest/axilla: Normal chest wall appearance and motion. Nontender with no deformity. Cardiovascular: Regular rate and rhythm with a normal S1 and S2. No gallops, murmurs, or rubs. Normal PMI, no JVD. No pulse deficits. Respiratory: Lungs have equal breath sounds bilaterally, clear to auscultation and percussion. No rales, rhonchi or wheezes noted. No increased work of breathing, no retractions or nasal flaring. Abdomen/GI: Soft, non-tender, with normal bowel sounds. No distension or tympany. No guarding or rebound. No evidence of tenderness throughout. 23:29 Musculoskeletal/extremity: Extremities: noted in the left leg: pain, There is no evidence of erythema, rash, swelling, tenderness, Vital Signs: 21:03 BP 180 / 125; Pulse 112; Resp 18; Temp 97(TE); Pulse Ox 99% on R/A; Weight 107.95 kg km8 (R); Height 6 ft. 1 in. (R); Pain 10/10; 21:03 Body Mass Index 31.40 (107.95 kg, 185.42 cm) km 21:03 Pain Scale: Adult km8 Caitlin Coma Score: 21:06 Eye Response: spontaneous(4). Motor Response: obeys commands(6). Verbal Response: km8 oriented(5). Total: 15. MDM: 20:54 Patient medically screened. ms3 23:29 Differential diagnosis: DVT versus osteoarthritis versus fracture. Data reviewed: vital ms3 signs, nurses notes, radiologic studies, and as a result, I will discharge patient. I considered the following discharge prescriptions or medication management in the emergency department Medications were administered in the Emergency Department. See MAR. Counseling: I had a detailed discussion with the patient and/or guardian regarding the historical points, exam findings, and any diagnostic results supporting the discharge/admit diagnosis, radiology results, the need for outpatient follow up, to return to the emergency department if symptoms worsen or persist or if there are any questions or concerns that arise at home. Special discussion: I discussed with the patient/guardian in detail that at this point there is no indication for admission to the hospital. It is understood, however, that if the symptoms persist or worsen the patient needs to return immediately for re-evaluation. ED course: Discussed med report with patient. Patient to follow-up with primary care physician in 2 to 3 days. Patient understands and agrees with plan. All questions were answered. Return precautions discussed include worsening symptoms, fevers, chills, nausea, vomiting, or any other concerns. On reevaluation patient alert and oriented x 4, no apparent distress, nontoxic-appearing, ambulatory in the emergency department. 02/08 20:57 Order name: US Extremity Venous Unilateral Ltd; Complete Time: 23:13 ms3 02/08 21:52 Order name: Knee Left 3 View XRAY; Complete Time: 23:13 ms3 02/08 21:52 Order name: Tib Fib Left XRAY; Complete Time: 23:13 ms3 02/08 21:52 Order name: Hip Left 2 View XRAY; Complete Time: 23:13 ms3 Administered Medications: 21:02 Drug: HYDROcodone-acetaminophen PO 5 mg-325 mg 1 tabs PO once Route: PO; tm6 23:20 Follow up: Response: No adverse reaction; Pain is decreased km8 21:02 Drug: Diazepam PO 5 mg PO once Route: PO; tm6 23:20 Follow up: Response: No adverse reaction; Pain is decreased km8 23:22 Drug: Gabapentin PO 300 mg PO once Route: PO; km8 Disposition Summary: 02/09/24 23:29 Discharge Ordered Notes: Location: Home ms3 Condition: Stable ms3 Diagnosis - Pain in left leg ms3 Followup: ms3 - With: Facundo Fall DO - When: 2 - 3 days - Reason: Recheck today's complaints Discharge Instructions: - Discharge Summary Sheet ms3 - Musculoskeletal Pain ms3 Forms: - Medication Reconciliation Form ms3 - Thank You Letter ms3 - Antibiotic Education ms3 - Prescription Opioid Use ms3 - Patient Portal Instructions ms3 - Leadership Thank You Letter ms3 Prescriptions: - gabapentin 300 mg Oral capsule - take 1 capsule ORAL route every 8 hours; 12 capsule; Refills: 0, Product ms3 Selection Permitted Signatures: Dispatcher [employer] EDNaveed Bhandari DO DO ms3 Sita Mcdonough RN RN km8 Lesa Unger RN RN tm6
--- NOTE | 2024-02-09 23:30 | ER ---
Nurse's Notes [facility] Name: Dean Brownlee Age: 58 yrs Sex: Male : 1965 Arrival Date: 02/09/2024 Time: 20:15 Bed DX3 Private MD: Diagnosis: Pain in left leg Presentation: 02/08 21:03 Chief complaint: Patient states: left calf pain for 1 week; seen by PCP and had a km8 ultrasound which ruled out a DVT. Coronavirus screen: Client denies travel out of the [place] in the last 14 days. Ebola Screen: No symptoms or risks identified at this time. Initial Sepsis Screen: Does the patient meet any 2 criteria? HR > 90 bpm. No. Patient's initial sepsis screen is negative. Does the patient have a suspected source of infection? No. Patient's initial sepsis screen is negative. Risk Assessment: Do you want to hurt yourself or someone else? Patient reports no desire to harm self or others. Onset of symptoms was February 02, 2024. 21:03 Method Of Arrival: Ambulatory km8 21:03 Acuity: HYUN 3 km8 Triage Assessment: 21:05 General: Appears uncomfortable, Behavior is cooperative, appropriate for age. Pain: km8 Complains of pain in left calf Pain currently is 10 out of 10 on a pain scale. Quality of pain is described as aching, crampy. EENT: No signs and/or symptoms were reported regarding the EENT system. Neuro: Level of Consciousness is awake, alert, obeys commands, Oriented to person, place, time, situation. Cardiovascular: Denies chest pain, shortness of breath, Patient's skin is warm and dry. Respiratory: Airway is patent Respiratory effort is even, unlabored, Respiratory pattern is regular, symmetrical. GI: No signs and/or symptoms were reported involving the gastrointestinal system. : No signs and/or symptoms were reported regarding the genitourinary system. Derm: No signs and/or symptoms reported regarding the dermatologic system. Skin is intact, is healthy with good turgor, Skin is dry, Skin is normal, Skin temperature is warm. Musculoskeletal: Range of motion: intact in all extremities, Reports pain in left calf since 1 week ago. Pain is 10 out of 10 on a pain scale. Historical: - Allergies: 21:05 Morphine; km8 - Home Meds: 21:05 None [Active]; km8 - PMHx: 21:05 Migraines; 8 - PSHx: 21:05 Appendectomy; km8 - Immunization history:: Client reports having NOT received the Covid vaccine. Flu vaccine is not up to date. - Social history:: Smoking status: Patient denies any tobacco usage or history of. Patient uses alcohol, occasionally. Patient/guardian denies using street drugs. Screenin:06 [facility] ED Fall Risk Assessment (Adult) History of falling in the last 3 months, [facility] including since admission No falls in past 3 months (0 pts) Confusion or Disorientation No (0 pts) Intoxicated or Sedated No (0 pts) Impaired Gait Yes (1 pt) Mobility Assist Device Used No (0 pt) Altered Elimination No (0 pt) Score/Fall Risk Level 0 - 2 = Low Risk Oriented to surroundings, Maintained a safe environment, Educated pt \T\ family on fall prevention, incl call for assistance when getting out of bed, Assessed \T\ reinforced patient's understanding of fall precautions. Abuse screen: Denies threats or abuse. Denies injuries from another. Nutritional screening: No deficits noted. Tuberculosis screening: No symptoms or risk factors identified. Assessment: 21:06 Reassessment: see triage assessment/notes. [facility] 23:22 Reassessment: Patient appears in no apparent distress at this time. Patient and/or km8 family updated on plan of care and expected duration. Pain level reassessed. Patient is alert, oriented x 3, equal unlabored respirations, skin warm/dry/pink. Patient states symptoms have improved. Pain: Complains of pain in left calf Pain currently is 7 out of 10 on a pain scale. Vital Signs: 21:03 BP 180 / 125; Pulse 112; Resp 18; Temp 97(TE); Pulse Ox 99% on R/A; Weight 107.95 kg 8 (R); Height 6 ft. 1 in. (R); Pain 10/10; 21:03 Body Mass Index 31.40 (107.95 kg, 185.42 cm) [facility] 21:03 Pain Scale: Adult [facility] [place] Coma Score: 21:06 Eye Response: spontaneous(4). Motor Response: obeys commands(6). Verbal Response: km8 oriented(5). Total: 15. ED Course: 20:17 Patient arrived in ED. ra3 20:18 Naveed Oseguera DO is Attending Physician. ms3 21:04 Triage completed. km8 21:05 Arm band placed on right wrist. km8 21:06 Patient placed in treatment chair. km8 21:06 Patient has correct armband on for positive identification. km8 21:06 Patient maintains SpO2 saturation greater than 95% on room air. km8 21:42 US Extremity Venous Unilateral Ltd In Process Unspecified. EDMS 22:28 Knee Left 3 View XRAY In Process Unspecified. EDMS 22:28 Tib Fib Left XRAY In Process Unspecified. EDMS 22:28 Hip Left 2 View XRAY In Process Unspecified. EDMS 23:28 Facundo Fall DO is Referral Physician. ms3 23:41 No provider procedures requiring assistance completed. Patient did not have IV access vc1 during this emergency room visit. 23:42 Provided Education on: Do not take more that 1 Tylenol when you get home because we vc1 administered [place]. Administered Medications: 21:02 Drug: HYDROcodone-acetaminophen PO 5 mg-325 mg 1 tabs PO once Route: PO; tm6 23:20 Follow up: Response: No adverse reaction; Pain is decreased km8 21:02 Drug: Diazepam PO 5 mg PO once Route: PO; tm6 23:20 Follow up: Response: No adverse reaction; Pain is decreased km8 23:22 Drug: Gabapentin PO 300 mg PO once Route: PO; km8 Medication: 21:06 VIS not applicable for this client. km8 Outcome: 23:29 Discharge ordered by MD. ms3 23:41 Discharged to home ambulatory, with significant other, vc1 23:41 Condition: good 23:41 Discharge instructions given to patient, Instructed on discharge instructions, follow up and referral plans. medication usage, Demonstrated understanding of instructions, follow-up care, wound care, Prescriptions given X 1, 23:42 Patient left the ED. vc1 Signatures: Dispatcher [employer] EDMS Naveed Oseguera DO DO ms3 Mandi Guerrier RN RN vc1 Sita Mcdonough RN RN km8 Lesa Unger RN RN tm6 Mony Godwin ra3
[2024-02-10 00:33] VITALS: BP 180/125; TEMP 97; O2SAT 99
== END ==
LOC: ER 20:15
DX: M79.605 Pain in left leg (principal); Z88.5 Allergy status to narcotic agent
CPT/HCPCS: 93971; 99284

== ENCOUNTER 2025-07-26 12:57 | Emergency (ER) | payer BC ==
[2025-07-26] MEDS ORDERED: NA CHLORIDE 0.9% 1,000 ML ONE (13:53)
[2025-07-26] MEDS ORDERED: FAMOTIDINE 20 MG/2 ML VIAL IV ONE (13:53)
[2025-07-26] MEDS ORDERED: ASPIRIN 81 MG CHEWABLE TABLET ONE (13:53)
[2025-07-26 13:57] LABS: Absolute Lymphocytes (CBC) 0.9 K/uL (0.7-4.9); Hematocrit 47.0 % (39.6-49.0); Hemoglobin 16.0 g/dL (13.6-17.9); MCH 29.8 pg (27.0-35.0); MCHC 34.0 g/dL (32.0-36.0); MCV 87.8 fL (80-100); MPV 10.0 fL (7.6-11.3); Nucleated RBC Absolute Count 0.0 (0-0); Nucleated Red Blood Cells % 0.1 % (0-0); RBC Red Blood Cell Count 5.35 M/uL (4.33-5.43); White Blood Count 13.10 thou/uL (4.3-10.9)
[2025-07-26 14:01] LABS: PT Prothrombin Time 13.9 SECONDS (10-13.0); Protime INR 1.24
[2025-07-26 14:17] LABS: ALT/SGPT 43.0 U/L (16-61); AST/SGOT 17.0 U/L (15-37); Albumin 4.1 g/dL (3.4-5.0); Albumin/Globulin Ratio 1.1 (1.1-1.8); Alkaline Phosphatase 78.0 U/L (45-117); Anion Gap 13.7 mEq/L (5.0-15.0); BUN Blood Urea Nitrogen 11.0 mg/dL (7-18); Bilirubin Indirect, Calculated 0.8 mg/dL (0.2-0.8); Globulin 3.7 g/dL (2.3-3.5); Glucose Level 114.0 mg/dL (74-106); Magnesium 1.9 mg/dL (1.6-2.4); Potassium 3.7 mEq/L (3.5-5.1); Troponin High Sensitivity 3.7 pg/mL (<58.9)
[2025-07-26 14:38] LABS: Blood Morphology Comment NOT SEEN (NOT SEEN); White Blood Cell Scan OK (OK)
--- NOTE | 2025-07-26 15:31 | RAD REPORT ---
EXAMINATION: ONE VIEW CHEST XR CLINICAL INDICATION: Male, 59 years old.,CHEST PAIN TECHNIQUE: Frontal chest projection is submitted. Examination is limited by patient positioning and t echnique. COMPARISON: 03/28/2022 FINDINGS: The lungs are well inflated and clear. No pneumothorax or sizable effusion. The heart is normal in s ize. Mediastinal contours are unremarkable. IMPRESSION: No acute intrathoracic abnormalities.
--- NOTE | 2025-07-26 15:42 | RAD REPORT ---
EXAM: Angio Aorta For Dissection HISTORY: [facility] MAIN no chest pain, throat pain, FB sensation Bed Name: 19 COMPARISON: CT abdomen pelvis 08/03/2021 TECHNIQUE: Multiple contiguous axial images were obtained a CTA of the chest and abdomen with contras t per aortic dissection protocol. Sagittal and coronal 3-D MIP reformats were performed. One or more of the following dose reduction techniques were used: Automated exposure control, adjustment of the mA and kV according to patient size, and iterative reconstruction. Unless otherwise specified, incidental findings do not require dedicated imaging follow-up. FINDINGS: PULMONARY ARTERIES: Normal in caliber without filling defects to suggest pulmonary emboli. MEDIASTINUM: No hilar or mediastinal lymphadenopathy. LUNGS: 6 mm peripheral left lower lobe nodule on axial image 101 series 402, stable. No focal infiltr ates or masses. PLEURAL SPACE: No pleural effusion or pneumothorax. LIVER: Unremarkable. KIDNEYS: Unremarkable. SPLEEN: Unremarkable. PANCREAS: Unremarkable. BOWEL: Unremarkable. RETROPERITONEUM: No lymphadenopathy BONES: Degenerative changes in the spine. ASCENDING THORACIC AORTA: Normal caliber without evidence of dissection or aneurysmal dilatation. DESCENDING THORACIC AORTA: Normal caliber without evidence of dissection or aneurysmal dilatation. ABDOMINAL AORTA: Normal caliber without evidence of dissection or aneurysmal dilatation. CELIAC TRUNK: Patent SMA: Patent CHARO: Patent RENAL ARTERIES: Bilateral single renal arteries without significant atherosclerotic disease IMPRESSION: No evidence of thoracic or abdominal aortic aneurysm or dissection.
[2025-07-26] MEDS ORDERED: MAGNES/ALUMIN/SIMET 30ML UCUP ONE (15:51)
[2025-07-26] MEDS ORDERED: LIDOCAINE VISCOUS 2% 10ML ORAL SOLN ONE (15:52)
--- NOTE | 2025-07-26 16:30 | ER ---
Nurse's Notes [facility] Name: Dean Brownlee Age: 59 yrs Sex: Male : 1965 Arrival Date: 07/26/2025 Time: 12:57 Bed 19 Private MD: Diagnosis: Gastro-esophageal reflux disease with esophagitis Presentation: 07/26 13:06 Chief complaint: Patient states: HE FEELS LIKE SOMETHING IS STUCK IN HIS THROAT SINCE dd2 SATURDAY AND HICCUPS BEGAN LAST NIGHT. Coronavirus screen: At this time, the client does not indicate any symptoms associated with coronavirus-19. Ebola Screen: No symptoms or risks identified at this time. Initial Sepsis Screen: Does the patient meet any 2 criteria? No. Patient's initial sepsis screen is negative. Does the patient have a suspected source of infection? No. Patient's initial sepsis screen is negative. Risk Assessment: Do you want to hurt yourself or someone else? Patient reports no desire to harm self or others. Onset of symptoms was July 24, 2025. 13:06 Method Of Arrival: Ambulatory dd2 13:06 Acuity: HYUN 3 dd2 Triage Assessment: 13:09 General: Appears in no apparent distress. uncomfortable, Behavior is calm, cooperative, dd2 appropriate for age. Pain: Complains of pain in throat Pain currently is 7 out of 10 on a pain scale. EENT: Reports difficulty swallowing pain when swallowing Pain is 7 out of 10 on a pain scale. Historical: - Allergies: 13:09 Morphine; dd2 - PMHx: 13:09 Migraines; dd2 - PSHx: 13:09 Appendectomy; dd2 - Immunization history:: Adult Immunizations unknown. - Infectious Disease History:: Denies. - Social history:: Smoking status: Patient denies any tobacco usage or history of. Screenin:10 [facility] ED Fall Risk Assessment (Adult) History of falling in the last 3 months, bp including since admission No falls in past 3 months (0 pts) Confusion or Disorientation No (0 pts) Intoxicated or Sedated No (0 pts) Impaired Gait No (0 pts) Mobility Assist Device Used No (0 pt) Altered Elimination No (0 pt) Score/Fall Risk Level 0 - 2 = Low Risk Oriented to surroundings. Abuse screen: Denies threats or abuse. Denies injuries from another. Nutritional screening: No deficits noted. Tuberculosis screening: No symptoms or risk factors identified. Assessment: 13:10 General: SEE TRIAGE NOTE. bp 15:32 Reassessment: No changes from previously documented assessment. Patient is alert, bp oriented x 3, equal unlabored respirations, skin warm/dry/pink. Vital Signs: 13:06 BP 150 / 97; Pulse 114; Resp 16; Temp 98.4; Pulse Ox 99% on R/A; Weight 110.68 kg; dd2 Height 6 ft. 1 in. ; Pain 7/10; 14:46 BP 156 / 97; Pulse 103; Resp 18; Pulse Ox 95% ; bp 15:32 BP 146 / 87; Pulse 92; Resp 16; Pulse Ox 95% ; bp 16:41 BP 131 / 94; Pulse 99; Resp 15; Pulse Ox 96% ; bp 13:06 Body Mass Index 32.19 (110.68 kg, 185.42 cm) dd2 13:06 Pain Scale: Adult dd2 ED Course: 13:03 Patient arrived in ED. al6 13:06 Drea Dean PA-C is PHCP. sb4 13:06 Naveed Oseguera DO is Attending Physician. sb4 13:09 Triage completed. dd2 13:09 Arm band placed on right wrist. dd2 13:10 Patient has correct armband on for positive identification. bp 13:11 Dash Lewis, RN is Primary Nurse. bp 13:32 Initial lab(s) drawn, by id, sent to lab. EKG done, by ED staff, reviewed by Drea Dean PA-C Strep swab sent to lab. Inserted saline lock: 20 gauge in right antecubital area, using aseptic technique. Blood collected. Flushed with 10 mL NS. 14:03 XRAY Chest (1 view) In Process Unspecified. EDMS 14:17 CT Aorta for Dissection In Process Unspecified. EDMS 16:29 Vinod Yoon MD is Referral Physician. sb4 16:29 Greg Youngblood MD is Referral Physician. sb4 16:29 Robbin Lyons MD is Referral Physician. sb4 16:42 No provider procedures requiring assistance completed. IV discontinued, intact, bp bleeding controlled, No redness/swelling at site. Pressure dressing applied. Administered Medications: 14:00 Drug: Famotidine IVP 20 mg IVP once; dilute with 10 mL 0.9% NaCl; give over 2 minutes bp Route: IVP; Site: right antecubital; 16:32 Follow up: Response: No adverse reaction bp 14:47 Drug: Aspirin PO Chewable Tablet 324 mg PO once; 81 mg tablets x 4 Route: PO; bp 14:47 Drug: NS 0.9% IV 1000 ml IV at 1000 ml once; to be given as a bolus over 60 minutes bp Route: IV; Rate: 1000 ml; Site: right antecubital; 16:32 Follow up: IV Status: Completed infusion bp 15:56 Drug: GI Cocktail without - (Maalox PO 30 ml, Lidocaine Mucous Membrane 2 % 15 bp ml) PO once Route: PO; 16:32 Follow up: Response: No adverse reaction bp Outcome: 16:29 Discharge ordered by MD. roberson 16:42 Discharged to home ambulatory, with family, bp 16:42 Condition: stable 16:42 Discharge instructions given to patient, Instructed on discharge instructions, follow up and referral plans. medication usage, Demonstrated understanding of instructions, follow-up care, medications, Prescriptions given X 1, 16:43 Patient left the ED. bp Signatures: Dispatcher [employer] EDDash Venegas RN RN bp Brown, Sophia PA-Zaira PAHermiloC sb4 SHAYY FRANK RN RN dd2 Nara Mccallum6
--- NOTE | 2025-07-26 16:30 | EDPHYS ---
Physician Documentation [facility] Name: Dean Brownlee Age: 59 yrs Sex: Male : 1965 Arrival Date: 07/26/2025 Time: 12:57 Bed 19 Private MD: ED Physician Naveed Oseguera HPI: 07/26 13:31 This 59 yrs old Male presents to ER via Ambulatory with complaints of throat sb4 pain. 13:31 Patient reports pain in his throat/chest for the past 2 to 3 days. He states it is sb4 worse when he swallows food or liquids, but he is able to get them down. Has not had any vomiting. Denies any medical history. Denies any nausea, but did force himself to vomit yesterday. Pain got worse today so he came for further eval.. Historical: - Allergies: 13:09 Morphine; dd2 - PMHx: 13:09 Migraines; dd2 - PSHx: 13:09 Appendectomy; dd2 - Immunization history:: Adult Immunizations unknown. - Infectious Disease History:: Denies. - Social history:: Smoking status: Patient denies any tobacco usage or history of. ROS: 13:31 Constitutional: Negative for fever, chills, and weight loss, sb4 13:31 ENT: Positive for sore throat, 13:31 Cardiovascular: Positive for chest pain, 13:31 All other systems are negative, Exam: 13:31 Head/Face: Normocephalic, atraumatic. Eyes: Extra-ocular motions intact. Periorbital sb4 areas with no swelling, redness, or edema. ENT: Mucous membranes moist. Respiratory: No increased work of breathing, no retractions or nasal flaring. Abdomen/GI: Soft, non-tender, no distension. Skin: Warm, dry with normal turgor. Normal color with no rashes, no lesions, and no evidence of cellulitis. 13:31 Constitutional: The patient appears in no acute distress, alert, awake, 13:31 ENT: Posterior pharynx: is normal, no acute changes, Airway: normal, no evidence of obstruction, patent, 13:31 Cardiovascular: Rate: tachycardic, Rhythm: regular, Vital Signs: 13:06 BP 150 / 97; Pulse 114; Resp 16; Temp 98.4; Pulse Ox 99% on R/A; Weight 110.68 kg; dd2 Height 6 ft. 1 in. ; Pain 7/10; 14:46 BP 156 / 97; Pulse 103; Resp 18; Pulse Ox 95% ; bp 15:32 BP 146 / 87; Pulse 92; Resp 16; Pulse Ox 95% ; bp 16:41 BP 131 / 94; Pulse 99; Resp 15; Pulse Ox 96% ; bp 13:06 Body Mass Index 32.19 (110.68 kg, 185.42 cm) dd2 13:06 Pain Scale: Adult dd2 MDM: 13:07 Medical Screening Exam initiated sb4 13:31 Differential diagnosis: ACS, esophagitis, foreign body, aortic dissection, GERD. sb4 16:19 Data reviewed: vital signs, nurses notes, lab test result(s), EKG, radiologic studies, sb4 and as a result, I will discharge patient. Consideration of Admission/Observation Escalation of care including admission/observation considered. Historians other than the Patient: Spouse/Significant Other: . Scoring Tools HEART Score: History: ECG: Age: Risk Factors: 1 or 2 risk factors (1), Troponin: Total Score = 3. Counseling: I had a detailed discussion with the patient and/or guardian regarding the historical points, exam findings, and any diagnostic results supporting the discharge/admit diagnosis, the presence of at least one elevated blood pressure reading (>120/80) during this emergency department visit, lab results, radiology results, the need for outpatient follow up, a motor vehicle examiner, a chin strap maker, to return to the emergency department if symptoms worsen or persist or if there are any questions or concerns that arise at home. Special discussion: Based on the patient's history, exam, and Dx evaluation, there is no indication for emergent intervention or inpatient Tx. It is understood by the patient/guardian that if the Sx's persist or worsen they need to return immediately for re-evaluation. Based on the presenting symptoms and work-up in the emergency department, I discussed in detail the need to arrange with the PCP or specialist an outpatient procedure, esophagogastroduodenoscopy by the GI specialist. 07/26 13:12 Order name: Basic Metabolic Panel sb4 07/26 13:12 Order name: CBC with Diff; Complete Time: 14:40 sb4 07/26 13:12 Order name: LFT's sb4 07/26 13:12 Order name: Magnesium sb4 07/26 13:12 Order name: NT PRO-BNP sb4 07/26 13:12 Order name: PT-INR; Complete Time: 14:03 sb4 07/26 13:12 Order name: Troponin HS sb4 07/26 13:12 Order name: Group A Streptococcus Rapid; Complete Time: 14:14 sb4 07/26 14:16 Order name: Throat Culture EDMS 07/26 14:17 Order name: CBC Smear Scan; Complete Time: 14:40 EDMS 07/26 15:46 Order name: Troponin High Sensitivity; Complete Time: 16:27 sb4 07/26 13:12 Order name: XRAY Chest (1 view); Complete Time: 15:33 sb4 07/26 13:12 Order name: CT Aorta for Dissection; Complete Time: 15:53 sb4 07/26 13:12 Order name: Cardiac monitoring; Complete Time: 13:30 sb4 07/26 13:12 Order name: EKG - Nurse/Tech; Complete Time: 13:30 sb4 07/26 13:12 Order name: IV Saline Lock; Complete Time: 13:30 sb4 07/26 13:12 Order name: Labs collected and sent; Complete Time: 13:30 sb4 07/26 13:12 Order name: O2 Per Protocol; Complete Time: 13:30 sb4 07/26 13:12 Order name: O2 Sat Monitoring; Complete Time: 13:30 sb4 07/26 15:46 Order name: PO challenge; Complete Time: 15:56 sb4 EC:34 Rate is 107 beats/min. Rhythm is regular, Sinus tachycardia. MA interval is normal at sb4 174 msec. QRS interval is normal at 98 msec. QT interval is normal at 330 msec. No Q waves. T waves are Normal. No ST changes noted. Clinical impression: Sinus tachycardia and No evidence of ischemia. Interpreted by me. Reviewed by me. Administered Medications: 14:00 Drug: Famotidine IVP 20 mg IVP once; dilute with 10 mL 0.9% NaCl; give over 2 minutes bp Route: IVP; Site: right antecubital; 16:32 Follow up: Response: No adverse reaction bp 14:47 Drug: Aspirin PO Chewable Tablet 324 mg PO once; 81 mg tablets x 4 Route: PO; bp 14:47 Drug: NS 0.9% IV 1000 ml IV at 1000 ml once; to be given as a bolus over 60 minutes bp Route: IV; Rate: 1000 ml; Site: right antecubital; 16:32 Follow up: IV Status: Completed infusion bp 15:56 Drug: GI Cocktail without - (Maalox PO 30 ml, Lidocaine Mucous Membrane 2 % 15 bp ml) PO once Route: PO; 16:32 Follow up: Response: No adverse reaction bp Disposition: 16:22 I was immediately available on-site in the Emergency Department for consultation in the ms3 care of the patient. Disposition Summary: 07/26/25 16:29 Discharge Ordered Notes: Location: Home sb4 Problem: an ongoing problem sb4 Symptoms: have improved sb4 Condition: Stable sb4 Diagnosis - Gastro-esophageal reflux disease with esophagitis sb4 Followup: sb4 - With: Vinod Yoon MD - When: As needed - Reason: Further diagnostic work-up, Recheck today's complaints, Re-evaluation by your physician Followup: sb4 - With: Greg Youngblood MD - When: As needed - Reason: Further diagnostic work-up, Recheck today's complaints, Re-evaluation by your physician Followup: sb4 - With: Robbin Lyons MD - When: As needed - Reason: Further diagnostic work-up, Recheck today's complaints, Re-evaluation by your physician Discharge Instructions: - Discharge Summary Sheet sb4 - Esophagitis sb4 - Gastroesophageal Reflux Disease, Adult, [id number] sb4 Forms: - Patient Portal Instructions sb4 - Leadership Thank You Letter sb4 Prescriptions: - Protonix 40 mg Oral Tablet - take 1 tablet ORAL route once daily; 30 tablet; Refills: 0, Product Selection sb4 Permitted Signatures: Dispatcher [employer] EDMS Dash Lewis, RN RN Naveed De La Cruz DO DO ms3 Drea Dean PA-C PA-C sb4 SHAYY FRANK, RN RN dd2 Corrections: (The following items were deleted from the chart) 13:13 13:13 Chest Single View+RAD.RAD.BRZ ordered. EDMS EDMS 13:13 13:13 Angio Aorta For Dissection+CT.RAD.BRZ ordered. EDMS EDMS
[2025-07-26 18:21] LABS: NT PRO-BNP 30.0 pg/mL (<125)
[2025-07-26 20:51] VITALS: TEMP 98.4
[2025-07-26 20:56] VITALS: BP 131/94; O2SAT 96
== END 2025-07-26 16:43 | disposition home or self-care (01) ==
LOC: ER 12:57
DX: K21.00 Gastro-esophageal reflux disease with esophagitis, without bleeding (principal)
CPT/HCPCS: 87070; 85025; 80048; 36415; 83735; 85610; 80076; 84484 ×2; 83880; 71275; 74175; 71045; Q9967; J7030; 93005